=== PATIENT | male | born 1970 | race Caucasian/White ===

== ENCOUNTER 2020-10-29 00:35 | Emergency (ER) | payer OTHER ==
[2020-10-29 00:58] LABS: BASOPHIL 0.6 % (0-2); EOSINOPHIL 2.8 % (0-5); HCT 44.4 % (42.0-52.0); HGB 15.3 g/dl (13.2-18.0); LYMPHOCYTE 22.5 % (15-48); MCH 31.8 pg (25.0-31.0); MCHC 34.5 g/dL (32.0-36.0); MCV 92.3 fL (78.0-100.0); MONOCYTE 6.5 % (0-12); MPV 10.2 fL (6.0-9.5); NEUTROPHIL 67.3 % (41-80); NRBC 0; PLT 246 K/uL (150-400); RBC 4.81 M/uL (4.70-6.00); RDW 12.4 % (11.5-14.0); WBC 11.5 K/uL (4.0-10.5)
[2020-10-29 01:02] LABS: INR 1.02 (0.9-1.2); PROTHROMBIN TIME 12.7 SECONDS (11.4-13.6)
[2020-10-29 01:03] LABS: PTT 29.2 SECONDS (22.2-34.7)
[2020-10-29 01:04] LABS: D-DIMER 0.47 ug/mLFEU (0.00-0.41)
[2020-10-29 01:07] LABS: ALBUMIN 3.4 g/dL (3.4-5.0); BILIRUBIN - TOTAL 0.3 mg/dL (0.2-1.0); BUN/CREAT RATIO (CALC) 16.1 RATIO; CREATININE 0.93 mg/dL (0.67-1.17); GLOBULIN (CALCULATION) 4.1 g/dL; POTASSIUM 3.4 mmol/L (3.5-5.1); TOTAL PROTEIN 7.5 g/dL (6.4-8.2)
== END 2020-10-29 03:00 | disposition other institution (70) ==
LOC: FER 00:35
PROVIDERS: Emergency Medicine Emergency Medical Services
DX: I21.19 ST elevation (STEMI) myocardial infarction involving other coronary artery of inferior wall (principal); I25.2 Old myocardial infarction; I11.0 Hypertensive heart disease with heart failure; I50.9 Heart failure, unspecified; I25.10 Atherosclerotic heart disease of native coronary artery without angina pectoris; F17.210 Nicotine dependence, cigarettes, uncomplicated; Z98.890 Other specified postprocedural states; Z95.1 Presence of aortocoronary bypass graft; Z95.5 Presence of coronary angioplasty implant and graft
CPT/HCPCS: 36415; 71045; 80053; 83690; 84484; 85025; 85379; 85610; 85730; 93005; J1170; J1644; J2270; J2405

== ENCOUNTER 2020-11-02 20:47 | Emergency (ER) | payer OTHER ==
[2020-11-02 21:13] LABS: BASOPHIL 0.5 % (0-2); EOSINOPHIL 2.4 % (0-5); HCT 39.1 % (42.0-52.0); HGB 13.4 g/dl (13.2-18.0); LYMPHOCYTE 18.5 % (15-48); MCH 31.7 pg (25.0-31.0); MCHC 34.3 g/dL (32.0-36.0); MCV 92.4 fL (78.0-100.0); MPV 10.3 fL (6.0-9.5); NEUTROPHIL 71.2 % (41-80); NRBC 0; PLT 266 K/uL (150-400); RBC 4.23 M/uL (4.70-6.00); RDW 12.4 % (11.5-14.0); WBC 13.2 K/uL (4.0-10.5)
[2020-11-02 21:22] LABS: INR 1.11 (0.9-1.2); PROTHROMBIN TIME 13.6 SECONDS (11.4-13.6); PTT 29.5 SECONDS (22.2-34.7)
[2020-11-02 21:29] LABS: ALBUMIN 3.3 g/dL (3.4-5.0); BILIRUBIN - TOTAL 0.3 mg/dL (0.2-1.0); BUN/CREAT RATIO (CALC) 15.4 RATIO; CREATININE 1.04 mg/dL (0.67-1.17); POTASSIUM 3.7 mmol/L (3.5-5.1); TOTAL PROTEIN 7.3 g/dL (6.4-8.2)
== END 2020-11-03 00:40 | disposition home or self-care (01) ==
LOC: FER 20:47
PROVIDERS: Emergency Medicine Emergency Medical Services
DX: R07.9 Chest pain, unspecified (principal); R06.02 Shortness of breath; I25.2 Old myocardial infarction; I11.0 Hypertensive heart disease with heart failure; I50.9 Heart failure, unspecified; I25.10 Atherosclerotic heart disease of native coronary artery without angina pectoris; F17.210 Nicotine dependence, cigarettes, uncomplicated; Z95.5 Presence of coronary angioplasty implant and graft; Z98.890 Other specified postprocedural states; Z79.899 Other long term (current) drug therapy; Z79.82 Long term (current) use of aspirin
CPT/HCPCS: 36415; 71045; 80053; 84484; 85025; 85610; 85730; 93005

== ENCOUNTER 2021-01-21 00:08 | Emergency (ER) | payer OTHER ==
[2021-01-21 00:23] LABS: BASOPHIL 0.5 % (0-2); EOSINOPHIL 1.9 % (0-5); HCT 39.7 % (42.0-52.0); HGB 13.6 g/dl (13.2-18.0); MCH 31.8 pg (25.0-31.0); MCHC 34.3 g/dL (32.0-36.0); MCV 92.8 fL (78.0-100.0); MONOCYTE 3.4 % (0-12); MPV 10.1 fL (6.0-9.5); NEUTROPHIL 83.8 % (41-80); NRBC 0; PLT 290 K/uL (150-400); RBC 4.28 M/uL (4.70-6.00); RDW 12.5 % (11.5-14.0); WBC 16.5 K/uL (4.0-10.5)
[2021-01-21 00:45] LABS: ALBUMIN 3.7 g/dL (3.4-5.0); BILIRUBIN - TOTAL 0.4 mg/dL (0.2-1.0); GLOBULIN (CALCULATION) 3.7 g/dL; POTASSIUM 4.1 mmol/L (3.5-5.1); TOTAL PROTEIN 7.4 g/dL (6.4-8.2)
[2021-01-21 01:21] LABS: INR 1.21 (0.9-1.2); PROTHROMBIN TIME 14.5 SECONDS (11.4-13.6); PTT 35.7 SECONDS (22.2-34.7)
== END 2021-01-21 04:25 | disposition other institution (70) ==
LOC: FER 00:08
PROVIDERS: Emergency Medicine Emergency Medical Services
DX: I21.4 Non-ST elevation (NSTEMI) myocardial infarction (principal); I11.0 Hypertensive heart disease with heart failure; I50.9 Heart failure, unspecified; I25.2 Old myocardial infarction; I25.10 Atherosclerotic heart disease of native coronary artery without angina pectoris; E78.5 Hyperlipidemia, unspecified; Z95.1 Presence of aortocoronary bypass graft; Z95.5 Presence of coronary angioplasty implant and graft; Z79.01 Long term (current) use of anticoagulants; Z79.02 Long term (current) use of antithrombotics/antiplatelets; Z79.899 Other long term (current) drug therapy
CPT/HCPCS: 36415; 36600; 71045; 80053; 82803; 83880; 84484; 85025; 85610; 85730; 93005; 94640; 94664; J1644; J1940; J2270; J2405